=== PATIENT | male | born 1965 | race Caucasian/White ===

== ENCOUNTER 2020-02-19 17:58 | Emergency (ER) | payer BC, OTHER ==
[~2020-02-19] VITALS: Ht 177.8 cm; Wt 66.6 kg
--- NOTE | 2020-02-19 18:28 | ED Headache ---
General Chief Complaint: Head/Cervical Problems Stated Complaint: NECK PAIN,HEADACHE History of Present Illness Date Seen by Provider: Feb 19, 2020 Time Seen by Provider: 18:15 Initial Comments 55-year-old male presents with 1 day of right-sided headache and right-sided upper neck pain. Worse in certain positions and certain motion, associated nausea without vomiting. States he has had similar headaches in the past, but typically only after he has had surgery. Denies light or noise sensitivity. Past medical history significant for multiple abdominal surgeries, initial surgery was a total colectomy, then subsequent reparative surgeries and scar tissue/adhesions repair one year ago. Allergies and Home Medications Allergies Coded Allergies: Penicillins (Verified Allergy, Unknown, 02/19/20) Patient Home Medication List Home Medication List Reviewed: Yes Review of Systems Review of Systems Constitutional: see HPI; No dizziness, No fever; malaise; No weakness Eyes: No Symptoms Reported; Denies Blindness, Denies Blurred Vision Ears, Nose, Mouth, Throat: no symptoms reported; denies ear pain, denies nose pain, denies nose discharge, denies epistaxis, denies mouth swelling, denies throat pain, denies throat swelling Respiratory: No cough, No short of breath Cardiovascular: No chest pain, No edema, No palpitations Gastrointestinal: No abdominal pain, No constipation, No diarrhea; loss of appetite, nausea; No vomiting Musculoskeletal: No back pain; neck pain (upper right side) Skin: No change in color, No rash Psychiatric/Neurological: Headache; Denies Numbness, Denies Paresthesia, Denies Tremors, Denies Weakness Past Dnezkha-Ejnitm-Acdxrv Hx Past Med/Social Hx: Reviewed Nursing Past Med/Soc Hx Patient Social History Recent Foreign Travel: No Contact w/Someone Who Travel: No Physical Exam Vital Signs Vital Signs - First Documented 02/19/20 18:04 Temp 36.5 Pulse 80 Resp 16 B/P (MAP) 167/116 (133) Pulse Ox 100 O2 Delivery Room Air Capillary Refill : Height, Weight, BMI Height: '" Weight: lbs. oz. kg; BMI Method: General Appearance: WD/WN, no apparent distress HEENT: PERRL/EOMI, normal ENT inspection Neck: full range of motion, supple, tender lateral (upper R - suboccipital area) Crainal Nerves: normal hearing, normal speech, PERRL Motor/Sensory: no motor deficit, no sensory deficit Skin: normal color, warm/dry Progress/Results/Core Measures Results/Orders My Orders Orders - YOGESH WHITE DO Ed Iv/Invasive Line Start (02/19/20 18:23) Lactated Ringers (Lr 1000 Ml Iv Solution (02/19/20 18:30) Ondansetron Injection (Zofran Injectio (02/19/20 18:30) Ketorolac Injection (Toradol Injection) (02/19/20 18:30) Medications Given in ED Current Medications Medications Dose Ordered Sig/Liz Route Start Time Stop Time Status Last Admin Dose Admin Ketorolac Tromethamine 30 mg ONCE ONCE IVP 02/19/20 18:30 02/19/20 18:31 DC 02/19/20 18:32 30 MG Ondansetron HCl 4 mg ONCE ONCE IVP 02/19/20 18:30 02/19/20 18:31 DC 02/19/20 18:32 4 MG Vital Signs/I&O 02/19/20 18:04 Temp 36.5 Pulse 80 Resp 16 B/P (MAP) 167/116 (133) Pulse Ox 100 O2 Delivery Room Air Departure Impression Primary Impression: Tension type headache Qualified Codes: G44.209 - Tension-type headache, unspecified, not intractable Disposition: 01 HOME, SELF-CARE Condition: Improved Departure-Patient Inst. Decision time for Depature: 19:06 Referrals: NO,LOCAL PHYSICIAN (PCP/Family) Primary Care Physician Patient Instructions: Tension Headache (DC) Add. Discharge Instructions: Follow up with your physician or the nearest ER if you're headache is not improving or worse All discharge instructions reviewed with patient and/or family. Voiced understanding. Scripts Ondansetron (Ondansetron Odt) 4 Mg Tab.rapdis 4 MG PO TID for Nausea, #20 TAB Prov: YOGESH WHITE DO 02/19/20 Cyclobenzaprine HCl (Cyclobenzaprine HCl) 10 Mg Tablet 10 MG PO HS PRN for tension headache, #20 TAB 0 Refills Prov: SHANDRASTINEYOGESH DO 02/19/20 ROVENSTINEYOGESH DO Feb 19, 2020 18:28
[2020-02-19] MEDS ORDERED: KETOROLAC 30 MG/ML VIAL IVP ONE (18:30)
[2020-02-19] MEDS ORDERED: LACTATED RINGERS 1,000 ML IV SCH (18:30)
[2020-02-19] MEDS ORDERED: ONDANSETRON 4 MG/2 ML (SDV) Z0FRAN IVP ONE (18:30)
[2020-02-19] MEDS ORDERED: ONDA4TAB11 PO (19:08)
[2020-02-19] MEDS ORDERED: CYCL10TA9 PO (19:08)
[2020-02-19 19:12] VITALS: BP 146/89
== END 2020-02-19 19:12 | disposition home or self-care (01) ==
LOC: ER FS 18:00
DX: G44.209 Tension-type headache, unspecified, not intractable (principal); M54.2 Cervicalgia; Z88.0 Allergy status to penicillin

== ENCOUNTER 2020-10-07 10:42 | Emergency (ER) | payer BC ==
[~2020-10-07] VITALS: Ht 177.8 cm; Wt 61.2 kg
[~2020-10-07 10:42] MED LIST: CYCL10TA9 PO; ONDA4TAB11 PO
[2020-10-07] MEDS ORDERED: HYDROmorphone 2 MG/ML VIAL (DILAUDID) IV ONE ×2 (11:00→13:00)
[2020-10-07] MEDS ORDERED: LACTATED RINGERS 1,000 ML IV ONE (11:00)
[2020-10-07] MEDS ORDERED: ONDANSETRON 4 MG/2 ML (SDV) Z0FRAN IVP ONE ×2 (11:00→12:15)
--- NOTE | 2020-10-07 11:19 | ED Abdominal Pain ---
General Chief Complaint: Abdominal/GI Problems Stated Complaint: VOMITING; ABD PAIN Nursing Triage Note: Patient reports sudden onset of RLQ abdominal pain, nausea/vomiting 8 hours ago. 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 He reports a small bowel movement last night, states he took dilaudid at home for the pain. Source of Information: Patient, Family Exam Limitations: No Limitations History of Present Illness Date Seen by Provider: Oct 07, 2020 Time Seen by Provider: 10:50 Initial Comments Here with complaint of right lower quadrant abdominal pain that has been going on for the last 8 hours. 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 Last bowel movement about 6 or 8 hours ago. Has had several episodes of nausea and vomiting. Has had previous small bowel obstruction secondary to adhesions. Did take Dilaudid 2 mg p.o. at home and that has not helped. He will get blockages occasionally. Sometimes the clear on their own which is pain medicine. He is having significant pain right now. Timing/Duration: 4-6 Hours Severity/Quality: Moderate, Severe, Aching, Cramping Location: RLQ Radiation: Other (Generalized abdomen) Activities at Onset: None Modifying Factors: Worsens With Eating Associated Symptoms: No Back Pain, No Chest Pain, No Fever/Chills; Nausea/Vomiting; No Swelling/Mass in Abdomen, No Weakness Allergies and Home Medications Allergies Coded Allergies: Penicillins (Verified Allergy, Unknown, 02/19/20) Home Medications Cyclobenzaprine HCl 10 Mg Tablet, 10 MG PO HS PRN for tension headache Prescribed by: YOGESH WHITE on 02/19/201907 Ondansetron 4 Mg Tab.rapdis, 4 MG PO TID Prescribed by: YOGESH MANNINGVENSTINE on 02/19/201907 Patient Home Medication List Home Medication List Reviewed: Yes Review of Systems Review of Systems Constitutional: see HPI; No chills, No fever EENTM: No Symptoms Reported Respiratory: No Symptoms Reported Cardiovascular: Denies Chest Pain, Denies Edema Gastrointestinal: Abdominal Pain, Nausea, Vomiting Genitourinary: No Symptoms Reported Musculoskeletal: No back pain, No muscle pain Skin: no symptoms reported All Other Systems Reviewed Negative Unless Noted: Yes Past Vqmotou-Meashm-Xnmxhi Hx Patient Social History Tobacco Use?: No Substance use?: No Alcohol Use?: No Seasonal Allergies Seasonal Allergies: No Past Medical History Surgeries: Yes Bowel Surgery, Gallbladder Respiratory: No Cardiac: No Neurological: No Genitourinary: No Gastrointestinal: Yes Gastroesophageal Reflux, Irritable Bowel Musculoskeletal: Yes (Herniated disk ) Back Injury, Chronic Back Pain Endocrine: No HEENT: No Cancer: No Psychosocial: No Integumentary: No Blood Disorders: No Family Medical History Reviewed Nursing Family Hx Physical Exam Vital Signs Vital Signs - First Documented 10/07/20 10:54 Temp 36.3 Pulse 91 Resp 32 B/P (MAP) 110/95 (100) Pulse Ox 99 O2 Delivery Room Air Capillary Refill : Less Than 3 Seconds Height/Weight/BMI Height: '" Weight: lbs. oz. kg; 19.00 BMI Method: General Appearance: WD/WN, no apparent distress HEENT: PERRL/EOMI, pharynx normal Neck: full range of motion, supple Respiratory: lungs clear, normal breath sounds Cardiovascular: no murmur, tachycardia Peripheral Pulses: 2+ Dorsalis Pedis (R), 2+ Left Dors-Pedis (L), 2+ Radial Pulses (R), 2+ Radial Pulses (L) Gastrointestinal: soft, abnormal bowel sounds (Decreased), tenderness (Right- side of abdomen) Extremities: non-tender, normal inspection Back: normal inspection, no CVA tenderness, no vertebral tenderness Neurologic/Psychiatric: alert, oriented x 3 Skin: normal color, warm/dry Progress/Results/Core Measures Results/Orders Lab Results Laboratory Tests Test 10/07/20 10:51 Range/Units White Blood Count 13.8 H 4.3-11.0 10^3/uL Red Blood Count 5.29 4.35-5.85 10^6/uL Hemoglobin 16.3 13.3-17.7 G/DL Hematocrit 46 40-54 % Mean Corpuscular Volume 86 80-99 FL Mean Corpuscular Hemoglobin 31 25-34 PG Mean Corpuscular Hemoglobin Concent 36 32-36 G/DL Red Cell Distribution Width 11.7 10.0-14.5 % Platelet Count 263 130-400 10^3/uL Mean Platelet Volume 9.3 7.4-10.4 FL Immature Granulocyte % (Auto) 1 % Neutrophils (%) (Auto) 85 H 42-75 % Lymphocytes (%) (Auto) 9 L 12-44 % Monocytes (%) (Auto) 4 0-12 % Eosinophils (%) (Auto) 0 0-10 % Basophils (%) (Auto) 0 0-10 % Neutrophils # (Auto) 11.7 H 1.8-7.8 X 10^3 Lymphocytes # (Auto) 1.3 1.0-4.0 X 10^3 Monocytes # (Auto) 0.6 0.0-1.0 X 10^3 Eosinophils # (Auto) 0.1 0.0-0.3 10^3/uL Basophils # (Auto) 0.1 0.0-0.1 10^3/uL Immature Granulocyte # (Auto) 0.1 0.0-0.1 10^3/uL Sodium Level 138 135-145 MMOL/L Potassium Level 3.7 3.6-5.0 MMOL/L Chloride Level 98 98-107 MMOL/L Carbon Dioxide Level 25 21-32 MMOL/L Anion Gap 15 H 5-14 MMOL/L Blood Urea Nitrogen 12 7-18 MG/DL Creatinine 0.82 0.60-1.30 MG/DL Estimat Glomerular Filtration Rate 97 BUN/Creatinine Ratio 15 Glucose Level 137 H 70-105 MG/DL Calcium Level 10.5 H 8.5-10.1 MG/DL Corrected Calcium 8.5-10.1 MG/DL Total Bilirubin 0.8 0.1-1.0 MG/DL Aspartate Amino Transf (AST/SGOT) 25 5-34 U/L Alanine Aminotransferase (ALT/SGPT) 28 0-55 U/L Alkaline Phosphatase 79 40-136 U/L C-Reactive Protein < 0.30 <0.50 MG/DL Total Protein 8.4 H 6.4-8.2 GM/DL Albumin 5.1 H 3.2-4.5 GM/DL My Orders Orders - CHARLA GUZMAN MD Cbc With Automated Diff (10/07/20 10:55) Comprehensive Metabolic Panel (10/07/20 10:55) Ed Iv/Invasive Line Start (10/07/20 10:55) Lactated Ringers (Lr 1000 Ml Iv Solution (10/07/20 11:00) Ondansetron Injection (Zofran Injectio (10/07/20 11:00) Hydromorphone Injection (Dilaudid Inject (10/07/20 11:00) Crp Fs (10/07/20 10:51) Ct Abdomen/Pelvis W (10/07/20 11:44) Ondansetron Injection (Zofran Injectio (10/07/20 12:15) Hydromorphone Injection (Dilaudid Inject (10/07/20 13:00) Ns Iv 500 Ml (Sodium Chloride 0.9%) (10/07/20 13:00) Iohexol Injection (Omnipaque 350 Mg/Ml 1 (10/07/20 13:30) Received Contrast (Hold Metformin- Contr (10/07/20 13:30) Sodium Chloride Flush (Catheter Flush Sy (10/07/20 13:30) Ns (Ivpb) (Sodium Chloride 0.9% Ivpb Bag (10/07/20 13:30) Lactated Ringers (Lr 1000 Ml Iv Solution (10/07/20 15:35) Medications Given in ED Current Medications Medications Dose Ordered Sig/Liz Route Start Time Stop Time Status Last Admin Dose Admin Hydromorphone HCl 1 mg ONCE ONCE IV 10/07/20 11:00 10/07/20 11:01 DC 10/07/20 11:04 1 MG Hydromorphone HCl 1 mg ONCE ONCE IV 10/07/20 13:00 10/07/20 13:01 DC 10/07/20 13:08 1 MG Iohexol 100 ml ONCE ONCE IV 10/07/20 13:30 10/07/20 13:33 DC 10/07/20 14:01 100 ML Lactated Ringer's 1,000 ml @ 0 mls/hr Q0M ONCE IV 10/07/20 11:00 10/07/20 11:01 DC 10/07/20 11:04 1,000 MLS/HR Ondansetron HCl 4 mg ONCE ONCE IVP 10/07/20 11:00 10/07/20 11:01 DC 10/07/20 11:04 4 MG Ondansetron HCl 4 mg ONCE ONCE IVP 10/07/20 12:15 10/07/20 12:16 DC 10/07/20 12:20 4 MG Sodium Chloride 10 ml NEEDED PRN IV 10/07/20 13:30 10/07/20 14:01 10 ML Sodium Chloride 100 ml ONCE ONCE IV 10/07/20 13:30 10/07/20 13:33 DC 10/07/20 14:01 85 ML Sodium Chloride 500 ml @ 0 mls/hr Q0M ONCE IV 10/07/20 13:00 10/07/20 13:01 DC 10/07/20 13:08 1,000 MLS/HR Vital Signs/I&O 10/07/20 10:54 Temp 36.3 Pulse 91 Resp 32 B/P (MAP) 110/95 (100) Pulse Ox 99 O2 Delivery Room Air Blood Pressure Mean: 100 Progress Progress Note : Progress Note Seen and evaluated. IV, labs, LR 1 L bolus, Dilaudid 1 mg IV and Zofran 4 mg IV ordered. Monitor patient. Anticipate CT scan. Monitor patient. 1215: I have ordered the CT scan but we delayed that briefly as patient was feeling better. He is nauseated now. Zofran 4 mg IV given. 1254: Patient is now worse again. We will give Dilaudid 1 mg IV and go ahead and get the CT scan. Patient was trying to avoid CT scan because he had a lot of lifetime radiation due to his underlying medical problems. At this point, we are obligated given his persistent pain and vomiting due to concerns for obstruction or other pathology. Patient agrees. We will proceed with CT scan. We will repeat fluid bolus as well. Monitor patient. 1649: CT does show blockage. We have monitored him since the CT scan. Patient was unsure if he wanted to stay. Ultimately he did have a bowel movement and states he actually feels much better. He states that he has been through this at least a dozen or more times before and if he can have a bowel movement then things are usually better. He will do liquid diet at home and then return if anything worsens. I did offer admission which she has declined. Given that he has been through this many times and understands the process, it is reasonable for him to try home therapy now. Discharged home with return precautions. Patient verbalized understanding of instructions and agreement with plan. I did advise him to return if there is any concerns or if pain returns or worsens. Patient verbalized willingness to comply. Diagnostic Imaging Diagonstic Imaging: CT Plain Films/CT/US/NM/MRI: abdomen, pelvis Comments MED REC#: [id number] PT STATUS: REG ER : 1965 PHYSICIAN: CHARLA GUZMAN MD ADMIT DATE: 10/07/20/ER FS Signed Date of Exam:10/07/20 CT ABDOMEN/PELVIS W EXAMINATION: CT abdomen and pelvis with intravenous contrast. TECHNIQUE: Multiple contiguous axial images were obtained through the abdomen and pelvis after the uneventful administration of intravenous contrast. All CT scans use one or more of the following dose optimizing techniques: automated exposure control, MA and/or KvP adjustment based on patient size and exam type or iterative reconstruction. HISTORY: Abdominal pain. COMPARISON: None available. FINDINGS: Limited views of the lower thorax are unremarkable. The liver is normal without focal lesion. There is no biliary ductal dilation. Gallbladder is surgically absent. Pancreas is normal. Spleen is normal. Adrenal glands are normal. The kidneys are normal. There is no hydronephrosis. Urinary bladder is normal. Small bowel is markedly dilated with decompression of the distal bowel and transition point in the mid abdomen below the umbilicus. No free fluid or air. No abdominal or pelvic lymphadenopathy. Aorta is normal in caliber without aneurysm. There are no suspicious osseous lesions. IMPRESSION: 1. Markedly dilated small bowel with distal decompression and the transition point in the midline underneath the umbilicus consistent with small bowel obstruction. Dictated by: Dictated on workstation # [id number] Dict: 10/07/20 1418 Trans: 10/07/20 1618 [facility] [phone] Interpreted by: UZRI VILLANUEVA MD Electronically signed by: ZURI VILLANUEVA MD 10/07/20 1618 Departure Impression Primary Impression: Small bowel obstruction Disposition: 01 HOME, SELF-CARE Condition: Stable Departure-Patient Inst. Decision time for Depature: 16:53 Referrals: NO,LOCAL PHYSICIAN (PCP/Family) Primary Care Physician Patient Instructions: Small Bowel Obstruction (DC) Add. Discharge Instructions: All discharge instructions reviewed with patient and/or family. Voiced understanding. At this point, your symptoms seem to have resolved but you do have findings of small bowel obstruction on the CT scan. It is important that you stick with liquid or clear diet over the next 24 to 48 hours and then advance as tolerated. You should follow-up with your surgeons for recheck and further evaluation. Do not hesitate to come back if you are having any concerns. Return for worse pain, vomiting, weakness, breathing problems, fever or other concerns as needed. CHARLA GUZMAN MD Oct 07, 2020 11:19
[2020-10-07 11:27] LABS: HEMATOCRIT 46 % (40-54); HEMOGLOBIN 16.3 G/DL (13.3-17.7); MEAN CORPUSCULAR HEMOGLOBIN 31 PG (25-34); MEAN CORPUSCULAR VOLUME 86 FL (80-99); WHITE BLOOD COUNT 13.8 10^3/uL (4.3-11.0)
[2020-10-07 11:28] LABS: MEAN CORPUSCULAR HGB CONC 36 G/DL (32-36)
[2020-10-07 11:38] LABS: MEAN PLATELET VOLUME 9.3 FL (7.4-10.4); PLATELET COUNT 263 10^3/uL (130-400)
[2020-10-07 11:39] LABS: BASOPHILS # (AUTO) 0.1 10^3/uL (0.0-0.1); BASOPHILS % (AUTO) 0 % (0-10); EOSINOPHILS # (AUTO) 0.1 10^3/uL (0.0-0.3); EOSINOPHILS % (AUTO) 0 % (0-10); LYMPHOCYTES # (AUTO) 1.3 X 10^3 (1.0-4.0); LYMPHOCYTES % (AUTO) 9 % (12-44); MONOCYTES # (AUTO) 0.6 X 10^3 (0.0-1.0); MONOCYTES % (AUTO) 4 % (0-12); NEUTROPHILS # (AUTO) 11.7 X 10^3 (1.8-7.8); NEUTROPHILS % (AUTO) 85 % (42-75)
[2020-10-07 11:41] LABS: ALANINE AMINOTRANSFERASE 28 U/L (0-55); ALBUMIN 5.1 GM/DL (3.2-4.5); ALKALINE PHOSPHATASE 79 U/L (40-136); BILIRUBIN,TOTAL 0.8 MG/DL (0.1-1.0); BUN/CREATININE RATIO 15; CALCIUM 10.5 MG/DL (8.5-10.1); CARBON DIOXIDE 25 MMOL/L (21-32); CHLORIDE 98 MMOL/L (98-107); CREATININE SERUM 0.82 MG/DL (0.60-1.30); GFR ESTIMATED 97; GLUCOSE 137 MG/DL (70-105); POTASSIUM 3.7 MMOL/L (3.6-5.0); SODIUM 138 MMOL/L (135-145); TOTAL PROTEIN 8.4 GM/DL (6.4-8.2)
[2020-10-07] MEDS ORDERED: NS IV 500 ML 500 ML IV ONE (13:00)
[2020-10-07] MEDS ORDERED: NS 100 ML (IVPB) BAG IV ONE (13:30)
[2020-10-07] MEDS ORDERED: HOLD METFORMIN - RECEIVED CONTRAST 20 ML VIAL IV SCH (13:30)
[2020-10-07] MEDS ORDERED: IOHEXOL 350 MG/ML 100 ML (OMNIPAQUE 350) VIAL IV ONE (13:30)
[2020-10-07] MEDS ORDERED: CATHETER FLUSH 10 ML SYR IV PRN (13:30)
--- NOTE | 2020-10-07 14:23 | Diagnostic Imaging Report ---
EXAMINATION: CT abdomen and pelvis with intravenous contrast. TECHNIQUE: Multiple contiguous axial images were obtained through the abdomen and pelvis after the uneventful administration of intravenous contrast. All CT scans use one or more of the following dose optimizing techniques: automated exposure control, MA and/or KvP adjustment based on patient size and exam type or iterative reconstruction. HISTORY: Abdominal pain. COMPARISON: None available. FINDINGS: Limited views of the lower thorax are unremarkable. The liver is normal without focal lesion. There is no biliary ductal dilation. Gallbladder is surgically absent. Pancreas is normal. Spleen is normal. Adrenal glands are normal. The kidneys are normal. There is no hydronephrosis. Urinary bladder is normal. Small bowel is markedly dilated with decompression of the distal bowel and transition point in the mid abdomen below the umbilicus. No free fluid or air. No abdominal or pelvic lymphadenopathy. Aorta is normal in caliber without aneurysm. There are no suspicious osseous lesions. IMPRESSION: 1. Markedly dilated small bowel with distal decompression and the transition point in the midline underneath the umbilicus consistent with small bowel obstruction. Dictated by: Dictated on workstation # [id number]
[2020-10-07] MEDS ORDERED: LACTATED RINGERS 1,000 ML IV STA (15:35)
[2020-10-07 17:11] VITALS: BP 116/84
[2020-10-07] MEDS ORDERED: ONDA4TAB11 PO (17:17)
== END 2020-10-07 17:15 | disposition home or self-care (01) ==
LOC: EDUNIT# 10:42 → ER FS 10:43
DX: K56.609 Unspecified intestinal obstruction, unspecified as to partial versus complete obstruction (principal)
CPT/HCPCS: 36415; 74177; 80053; 85025; 86141